=== PATIENT | female | born 2000 | race Caucasian/White ===

== ENCOUNTER 2023-03-23 10:13 | Emergency (ER) | payer OTHER, MEDICAID ==
[2023-03-23] MEDS ORDERED: Boostrix 0.5 ML (Tdap) VIAL (>/=7 yrs of age) ONE (11:26)
[2023-03-23] MEDS ORDERED: Morphine 4 MG/ML VIAL ONE (11:26)
[2023-03-23] MEDS ORDERED: Bacitracin 1 PK ONE (13:20)
== END 2023-03-23 14:01 | disposition home or self-care (01) ==
LOC: CSHERS 10:13
DX: S52.571A Other intraarticular fracture of lower end of right radius, initial encounter for closed fracture (principal); S42.252A Displaced fracture of greater tuberosity of left humerus, initial encounter for closed fracture; V21.01XA Electric (assisted) bicycle driver injured in collision with pedal cycle in nontraffic accident, initial encounter; Z23 Encounter for immunization
CPT/HCPCS: 29125; 70450; 70486; 72125; 90471; 90715; 96374; J2270